=== PATIENT | female | born 1950 | race Caucasian/White ===

== ENCOUNTER 2019-04-22 18:47 | Inpatient (IN) | payer OTHER, BC ==
[~2019-04-22] VITALS: Ht 162.6 cm; Wt 64.0 kg
[~2019-04-22 18:47] MED LIST: CLINDAMYCIN HC300 MG PO; COZAAR100 MG PO; DUONEB3 ML NEB; FLUOCINONIDE0.05% TOP; HCTZ/LISINOPRIL1 TA1 PO; LAC PO; LEVAQUIN750 MG PO; LOSARTAN POTASS50 MG PO; MECLICOT12.5 MG PO; MEDDP PO; NALTREXONE50 MG PO; OMEPRAZOLE DR20 M1 PO; PAROXETINE40 MG PO; PRE3 PO; SING10 PO; SPIRIVA18 MC1 INH; SPIRIVA18 MCG IH; TESSALON PERLE100 MG PO; VENLAFAXINE H37.5 M1 PO; VENTOLIN H0.09 MG/A1 INH; VENTOLIN H0.09 MG/Ac IH
[2019-04-22 18:50] VITALS: Ht 162.6 cm; Wt 64.0 kg
[2019-04-22 19:39] LABS: BASOPHIL % 0.2 % (0-2); PLATELET COUNT 309 x10^3mcL (130-400); RED CELL DISTRIBUTION WIDTH 12.9 % (11.5-14.5)
[2019-04-22 20:10] LABS: ALBUMIN 4.3 g/dL (3.4-5.0); ALKALINE PHOSPHATASE 72 U/L (46-116); ALT/SGPT 30 U/L (14-59); AST/SGOT 29 U/L (15-37); BILIRUBIN TOTAL 1.07 mg/dL (0.20-1.00); CALCIUM 9.7 mg/dL (8.5-10.1); CARBON DIOXIDE 27.9 mmol/L (21-32); CHLORIDE SERUM 90 mmol/L (98-107); CREATININE SERUM 0.6 mg/dL (0.6-1.0); GFR1 > 60 mL/min; GLUCOSE SERUM 108 mg/dL (74-106); LIPASE 142 IU/L (73-393); POTASSIUM SERUM 3.1 mmol/L (3.5-5.1); SODIUM SERUM 130 mmol/L (136-145); T4(THYROXINE) 7.4 ug/dL (4.7-13.3)
[2019-04-22 20:14] LABS: CHOLESTEROL 240 mg/dL (<200); HDL CHOLESTEROL 120 mg/dL (40-60); TOTAL PROTEIN, SERUM 8.3 g/dL (6.4-8.2)
[2019-04-22 20:17] LABS: UA SPECIFIC GRAVITY 1.015 (1.005-1.035); microscopic required? YES; urine erythrocyte NEGATIVE (NEGATIVE)
[2019-04-22 20:28] LABS: AMPHETAMINE QUAL UR NONE DETECTED (See below)
[2019-04-22] MEDS ORDERED: HYDROCHLOROTHIA25 MG PO (20:36)
[2019-04-22] MEDS ORDERED: BREO ELLIPTA1 POW IH (20:36)
[2019-04-22] MEDS ORDERED: ESCITALOPRAM10 M1 PO (20:36)
[2019-04-23 01:05] VITALS: BP 180/86
[2019-04-23 05:16] VITALS: BP 137/49
[2019-04-23 06:59] LABS: PLATELET COUNT 259 x10^3mcL (130-400); RED CELL DISTRIBUTION WIDTH 12.9 % (11.5-14.5)
[2019-04-23 07:03] LABS: CALCIUM 8.2 mg/dL (8.5-10.1); CARBON DIOXIDE 26.7 mmol/L (21-32); CHLORIDE SERUM 98 mmol/L (98-107); CREATININE SERUM 0.7 mg/dL (0.6-1.0); GFR1 > 60 mL/min; GLUCOSE SERUM 178 mg/dL (74-106); MAGNESIUM 1.7 mg/dL (1.8-2.4); PHOSPHOROUS 2.7 mg/dL (2.5-4.9); POTASSIUM SERUM 3.4 mmol/L (3.5-5.1); SODIUM SERUM 135 mmol/L (136-145)
[2019-04-23 07:07] LABS: BASOPHIL % 0 % (0-2)
[2019-04-23 07:58] VITALS: BP 118/69
[2019-04-23 11:52] VITALS: BP 116/61
[2019-04-23 16:21] VITALS: BP 132/64
[2019-04-23 20:55] VITALS: BP 120/61
[2019-04-24 05:18] VITALS: BP 112/62
[2019-04-24 06:26] LABS: CALCIUM 8.4 mg/dL (8.5-10.1); CARBON DIOXIDE 28.1 mmol/L (21-32); CHLORIDE SERUM 103 mmol/L (98-107); CREATININE SERUM 0.5 mg/dL (0.6-1.0); GFR1 > 60 mL/min; GLUCOSE SERUM 121 mg/dL (74-106); MAGNESIUM 2.2 mg/dL (1.8-2.4); PHOSPHOROUS 3.5 mg/dL (2.5-4.9); POTASSIUM SERUM 5.1 mmol/L (3.5-5.1); SODIUM SERUM 137 mmol/L (136-145)
[2019-04-24 06:29] LABS: PLATELET COUNT 266 x10^3mcL (130-400); RED CELL DISTRIBUTION WIDTH 13.3 % (11.5-14.5)
[2019-04-24 07:25] LABS: BASOPHIL % 0 % (0-2)
[2019-04-24 11:52] VITALS: BP 121/59
[2019-04-24 16:28] VITALS: BP 169/84
[2019-04-24 17:19] VITALS: BP 157/91
[2019-04-24 20:27] VITALS: BP 163/80
[2019-04-25 05:14] VITALS: BP 133/67
[2019-04-25 06:31] LABS: BASOPHIL % 0.1 % (0-2); PLATELET COUNT 260 x10^3mcL (130-400); RED CELL DISTRIBUTION WIDTH 13.5 % (11.5-14.5)
[2019-04-25 06:57] LABS: CALCIUM 8.7 mg/dL (8.5-10.1); CARBON DIOXIDE 27.2 mmol/L (21-32); CHLORIDE SERUM 102 mmol/L (98-107); CREATININE SERUM 0.5 mg/dL (0.6-1.0); GFR1 > 60 mL/min; GLUCOSE SERUM 133 mg/dL (74-106); POTASSIUM SERUM 4.4 mmol/L (3.5-5.1); SODIUM SERUM 138 mmol/L (136-145)
[2019-04-25 08:03] VITALS: BP 163/82
[2019-04-25 12:00] VITALS: BP 168/91
[2019-04-25] MEDS ORDERED: PRE20 PO (12:45)
[2019-04-25] MEDS ORDERED: LEVAQUIN750 MG PO (12:46)
== END 2019-04-25 16:33 | disposition home or self-care (01) | DRG 190 ==
LOC: ED 18:47 → DU 23:20
PROVIDERS: Emergency Medicine; ADMIT General Practice
DX: J44.1 Chronic obstructive pulmonary disease with (acute) exacerbation (principal); J18.9 Pneumonia, unspecified organism; N39.0 Urinary tract infection, site not specified; E87.1 Hypo-osmolality and hyponatremia; E87.6 Hypokalemia; I10 Essential (primary) hypertension; F41.9 Anxiety disorder, unspecified; E78.5 Hyperlipidemia, unspecified; F32.9 Major depressive disorder, single episode, unspecified; F12.10 Cannabis abuse, uncomplicated; F10.10 Alcohol abuse, uncomplicated; Z68.24 Body mass index [BMI] 24.0-24.9, adult; Z79.899 Other long term (current) drug therapy; Z85.3 Personal history of malignant neoplasm of breast; Z92.21 Personal history of antineoplastic chemotherapy
CPT/HCPCS: 36600; 82962; 83880; 85378; 90658; 90732; 94150; G0378; G0480; J0456; J1644; J2060; J2543; J2930; J3475; J7030; J7040; J7613; J7620; J7626; J7644; Q0092; Q9967

== ENCOUNTER → 2020-08-16 | Outpatient (CLI) | payer OTHER, BC ==
[~2020-08-16] MED LIST changes: +BREO ELLIPTA1 POW IH; +ESCITALOPRAM10 M1 PO; +HYDROCHLOROTHIA25 MG PO; +PRE20 PO
== END | disposition home or self-care (01) ==
LOC: MA 13:55
PROVIDERS: ATTEND Internal Medicine
PROC: BH02ZZZ Plain Radiography of Bilateral Breasts (ICD-10-PCS; principal; 2020-08-16)
DX: Z12.31 Encounter for screening mammogram for malignant neoplasm of breast (principal)
CPT/HCPCS: 77067

== ENCOUNTER → 2020-09-05 | Outpatient (CLI) | payer OTHER, BC | END | disposition home or self-care (01) | LOC: MA 13:00 | PROC: BH40ZZZ Ultrasonography of Right Breast (ICD-10-PCS; principal; 2020-09-05) | PROC: BH00ZZZ Plain Radiography of Right Breast (ICD-10-PCS; 2020-09-05) | DX: N63.10 Unspecified lump in the right breast, unspecified quadrant (principal); R92.2 Inconclusive mammogram | CPT/HCPCS: 76642; 77065 ==